=== PATIENT | female | born 1945 ===

== ENCOUNTER 2021-10-05 12:20 | Day surgery (SDC) | payer MEDICARE, MEDICAID ==
[~2021-10-05] VITALS: Ht 160 cm; Wt 77.5 kg
[2021-10-05] VITALS (7 sets, daily range): BP systolic 131–148; BP diastolic 58–80; PULSE 52–60; TEMP 97.1–98
[2021-10-05] MEDS ORDERED: COREG12.5 MG PO (12:57)
[2021-10-05] MEDS ORDERED: CELEXA 20MG20 MG/TAB PO (13:00)
[2021-10-05] MEDS ORDERED: WELLBUTRIN SR150 M1 PO (13:00)
[2021-10-05] MEDS ORDERED: LIPITOR 80MG80 MG PO (13:01)
[2021-10-05] MEDS ORDERED: SYNTHROID0.05 MG/TA PO (13:02)
[2021-10-05] MEDS ORDERED: HCTZ 25MG TAB25 MG PO (13:02)
[2021-10-05] MEDS ORDERED: PRIL40 PO (13:02)
[2021-10-05] MEDS ORDERED: MOTRIN 600600 MG/TAB PO (13:03)
--- NOTE | 2021-10-05 16:00 | NUR ---
PT EDUCATED ON CLEAR LIQUID DIET AND SOFT DIET AND INSTRUCTED WHEN TO ADVANCE DIET PER ENDO STAFF.
--- NOTE | 2021-10-05 16:30 | NUR ---
1420 PT RETURNED TO BAY 3 VIA CART. ALERT AND ORIENTED. MONITORS ATTACHED, INTERVALS AND ALARMS SET. VSS. PT DENIES ANY NAUSEA OR PAIN. WATER AND JELLO PROVIDED. CALL LIGHT IN REACH. FAMILY NOT CALLED YET PER PT. BED RAILS UP, NON SLIP SOCKS ON, CALL LIGHT IN REACH. 1435 VSS. PT DENIES ANY DISCOMFORT. TOLERATING FOOD AND DRINK WELL. 1450 VSS. PT DENIES DISCOMFORT. 1505 VSS. PT DENIES DISCOMFORT. DAUGHTER CALLED FOR RIDE HOME 1540 VSS. PT DENIES DISCOMFORT. 1600 VSS. PT DENIES DISCOMFORT. IV REMOVED WITHOUT COMPLICATIONS. REVIEWED ALL DISCHARGE INSTRUCTIONS AND EDUCATION MATERIAL, ANSWERED QUESTIONS AND ENCOURAGED TO CALL DR OFFICE FOR ADDITIONAL QUESTIONS. REVIEWED ENDO REPORT AND GAVE CLARIFICATION. PT ALLOWED TO DRESS. 1630 PT TRANSFERED VIA WHEELCHAIR TO PERSONAL VEHICLE TO BE DRIVEN HOME BY DAUGHTER.
== END 2021-10-05 16:30 | disposition home or self-care (01) ==
LOC: SDCO 12:20
DX: K80.70 Calculus of gallbladder and bile duct without cholecystitis without obstruction (principal); R94.5 Abnormal results of liver function studies; F17.210 Nicotine dependence, cigarettes, uncomplicated
CPT/HCPCS: C1769; J2704; J7120; Q9967